=== PATIENT | female | born 1985 | race Two or more races ===

== ENCOUNTER 2022-12-14 11:21 | Outpatient (CLI) | payer OTHER | END 2022-12-14 11:32 | disposition home or self-care (01) | LOC: SONOGRAMA 11:21 | PROVIDERS: ATTEND Specialist | DX: N64.4 Mastodynia (principal); E06.9 Thyroiditis, unspecified ==

== ENCOUNTER 2023-02-02 07:10 | Outpatient (CLI) | payer OTHER | END 2023-02-02 07:22 | disposition home or self-care (01) | LOC: NUCLEAR 07:10 | PROVIDERS: ATTEND Specialist | DX: E03.9 Hypothyroidism, unspecified (principal) ==